=== PATIENT | male | born 1980 | race Caucasian/White ===

== ENCOUNTER 2018-07-06 13:06 | Emergency (ER) | payer SELFPAY ==
--- NOTE | 2018-07-06 13:23 | EDM.PDOC ---
ED HPI GENERAL MEDICAL PROBLEM - General Chief Complaint: Upper Extremity Injury/Pain Stated Complaint: RIGHT ARM INJURY Time Seen by Provider: 07/06/18 13:08 Source of Information: Reports: Patient History Limitations: Reports: No Limitations - History of Present Illness INITIAL COMMENTS - FREE TEXT/NARRATIVE: HISTORY AND PHYSICAL: History of present illness: Patient is a 37-year-old male who presents to the emergency room with complaints of right anterior wrist pain. He states he jammed it while performing activities at work and since has had increased pain with flexion of the wrist that radiates into the distal forearm. He denies any falls, trauma of the head or any loss of consciousness. Denies any numbness or tingling of the affected extremity. Denies any previous surgeries or injuries of the affected extremity. Review of systems: As per history of present illness and below otherwise all systems reviewed and negative. Past medical history: As per history of present illness and as reviewed below otherwise noncontributory. Surgical history: As per history of present illness and as reviewed below otherwise noncontributory. Social history: See social history for further information Family history: As per history of present illness and as reviewed below otherwise noncontributory. Physical exam: General: Well-developed and well-nourished 37-year-old male. Alert and oriented. Nontoxic appearing and in no acute distress. HEENT: Atraumatic, normocephalic, pupils equal and reactive bilaterally, negative for conjunctival pallor or scleral icterus, mucous membranes moist, TMs normal bilaterally, throat clear, neck supple, nontender, trachea midline. No drooling or trismus noted. No meningeal signs. No hot potato voice noted. Lungs: Clear to auscultation, breath sounds equal bilaterally, chest nontender. Heart: S1S2, regular rate and rhythm without overt murmur Abdomen: Soft, nondistended, nontender. Negative for masses or hepatosplenomegaly. Negative for costovertebral tenderness. Pelvis: Stable nontender. Genitourinary: Deferred. Rectal: Deferred. Skin: Intact, warm, dry. No lesions or rashes noted. Extremities: Pain with flexion and extension of the right wrist. No snuffbox tenderness with palpation. No pain of the hand or forearm. Capillary refill less than 3 seconds, strong radial pulse. +CMS Neurovascular unremarkable. Neuro: Awake, alert, oriented. Cranial nerves II through XII unremarkable. Cerebellum unremarkable. Motor and sensory unremarkable throughout. Exam nonfocal. Notes: Patient's blood pressure is elevated upon arrival. I did ask the patient if he has a history of hypertension, he declines. I requested that we do some lab work to further investigate the elevated blood pressure, he declines stating he would follow up with his primary care provider and believes is due to drinking coffee prior to arrival. We did discuss the risks of continuing elevated blood pressure without treatment or management and he voices understanding. Diagnostics: Xray Therapeutics: Toradol, cockup wrist splint Prescription: Diclofenac Impression: Right wrist injury Plan: 1. Rest, ice, elevate the affected extremity as able. Please wear the wrist splint for comfort and as directed 2. Tylenol as needed for pain management. Do not take any additional NSAID such as ibuprofen or Aleve while using the diclofenac. Please take as directed and with food. 3. Follow-up with the orthopedic provider in the next 1-2 days. Return to the ED as needed and as discussed. Definitive disposition and diagnosis as appropriate pending reevaluation and review of above. - Related Data Allergies Allergy/AdvReac Type Severity Reaction Status Date / Time No Known Allergies Allergy Verified 07/06/18 13:25 Home Meds: Home Meds Diclofenac Sodium [Voltaren] 75 mg PO BIDMEALS PRN #20 tab.cr 07/06/18 [Rx] Divalproex Sodium [Depakote] 250 mg PO BID 07/06/18 [History] Sertraline HCl [Zoloft] 50 mg PO DAILY 07/06/18 [History] Past Medical History - Past Health History Medical/Surgical History: Denies Medical/Surgical History Social & Family History - Family History Family Medical History: Noncontributory Review of Systems - Review of Systems Review Of Systems: ROS reveals no pertinent complaints other than HPI. ED EXAM, GENERAL - Physical Exam Exam: See Below (See dictation) Course - Vital Signs Last Recorded V/S: Last Vital Signs Temp 96.6 F 07/06/18 13:20 Pulse 99 07/06/18 13:20 Resp 18 07/06/18 13:20 BP 161/110 H 07/06/18 13:20 Pulse Ox 99 07/06/18 13:20 - Orders/Labs/Meds Orders: Active Orders 24 hr Category Date Time Status DME for Discharge [COMM] Stat Oth 07/06/18 13:52 Ordered Meds: Medications Discontinued Medications Generic Name Dose Route Start Last Admin Trade Name Freq PRN Reason Stop Dose Admin Ketorolac Tromethamine 60 mg 07/06/18 13:28 07/06/18 13:34 Toradol IM 07/06/18 13:29 60 mg ONETIME ONE Administration Departure - Departure Time of Disposition: 13:55 Disposition: Home, Self-Care 01 Clinical Impression: Right wrist injury Qualifiers: Encounter type: initial encounter Qualified Code(s): S69.91XA - Unspecified injury of right wrist, hand and finger(s), initial encounter - Discharge Information Prescriptions: Diclofenac Sodium [Voltaren] 75 mg PO BIDMEALS PRN #20 tab.cr PRN Reason: Pain Referrals: PCP,None [Primary Care Provider] - Forms: ED Department Discharge Additional Instructions: The following information is given to patients seen in the emergency department who are being discharged to home. This information is to outline your options for follow-up care. We provide all patients seen in our emergency department with a follow-up referral. The need for follow-up, as well as the timing and circumstances, are variable depending upon the specifics of your emergency department visit. If you don't have a primary care physician on staff, we will provide you with a referral. We always advise you to contact your personal physician following an emergency department visit to inform them of the circumstance of the visit and for follow-up with them and/or the need for any referrals to a consulting specialist. The emergency department will also refer you to a specialist when appropriate. This referral assures that you have the opportunity for follow-up care with a specialist. All of these measure are taken in an effort to provide you with optimal care, which includes your follow-up. Under all circumstances we always encourage you to contact your private physician who remains a resource for coordinating your care. When calling for follow-up care, please make the office aware that this follow-up is from your recent emergency room visit. If for any reason you are refused follow-up, please contact the [facility] Emergency Department at and asked to speak to the emergency department charge nurse. [facility] [address] [place] [address] [id number] [address] [address] [facility] Professional Building [address], [address] [place] [address] 1. Rest, ice, elevate the affected extremity as able. Please wear the wrist splint for comfort and as directed 2. Tylenol as needed for pain management. Do not take any additional NSAID such as ibuprofen or Aleve while using the diclofenac. Please take as directed and with food. 3. Follow-up with the orthopedic provider in the next 1-2 days. Return to the ED as needed and as discussed.. - My Orders Last 24 Hours: My Active Orders 07/06/18 13:52 DME for Discharge [COMM] Stat - Assessment/Plan Last 24 Hours: My Active Orders 07/06/18 13:52 DME for Discharge [COMM] Stat
[2018-07-06] MEDS ORDERED: Ketorolac 60 MG/2 ML SDV IM ONE (13:28)
--- NOTE | 2018-07-06 13:50 | CR ---
EXAMINATION: Right wrist HISTORY: Pain COMPARISON: None TECHNIQUE: 2 views FINDINGS/IMPRESSION: There is no acute osseous abnormality, dislocation, or fracture. Bone mineralization and joint spaces are preserved. Radiocarpal alignment is normal.
[2018-07-06 14:23] VITALS: BP 122/83
== END 2018-07-06 14:09 | disposition home or self-care (01) ==
LOC: MW.ED 13:06
DX: S69.91XA Unspecified injury of right wrist, hand and finger(s), initial encounter (principal); Z79.899 Other long term (current) drug therapy; W19.XXXA Unspecified fall, initial encounter; Y99.0 Civilian activity done for income or pay
CPT/HCPCS: 73100; 96372; 99283; J1885

== ENCOUNTER → 2022-04-29 | Emergency (ER) | payer SELFPAY ==
[~2022-04-29] MED LIST: Sodium Chloride 0.9% 1,000 ML IV ONE
[2022-04-29 04:27] LABS: BLOOD UREA NITROGEN,BUN 11 mg/dL (7.0-18.0); CARBON DIOXIDE,CO2 25.9 mmol/L (21.0-32.0); CHLORIDE,CL 100 mmol/L (98-107); GLUCOSE RANDOM 275 mg/dL (74-106); POTASSIUM,K 4.1 mmol/L (3.5-5.1); SODIUM,NA 139 mmol/L (136-148)
[2022-04-29 04:28] LABS: ESTIMATED GFR 72 mL/min (>60)
[2022-04-29 04:36] VITALS: BP 172/104; PULSE 135
== END | disposition left against medical advice (07) ==
LOC: MW.ED 03:44
DX: T40.2X1A Poisoning by other opioids, accidental (unintentional), initial encounter (principal)
CPT/HCPCS: 36415; 71045; 80053; 80305; 80307; 83735; 84484; 85025; 93005; 99285; J7030